=== PATIENT | male | born 1945 | race Caucasian/White ===

== ENCOUNTER 2017-06-03 13:04 | Outpatient (CLI) | payer MEDICARE, OTHER ==
--- NOTE | 2017-06-03 14:01 | ULT ---
ULTRASOUND WITH DOPPLER DUPLEX VENOUS LOWER EXTREMITY RIGHT CPT: 64933 ICD-10-PCS: B54D HISTORY: Edema. TECHNIQUE: Color flow Doppler, spectral waveform analysis of pulsed Doppler, and tinajero-scale imaging with elayne antonia and augmentation, were used to evaluate the right common femoral, femoral, popliteal, posterior tibial, and superficial femoral, veins; and the proximal portions of the profunda femoral and greater saphenous, veins. FINDINGS: There is appropriate compressibility and flow within the deep venous system of the right lower extrem ity. IMPRESSION: No DVT. POS: [facility]
== END 2017-06-03 13:05 | disposition home or self-care (01) ==
LOC: ULT 13:04
PROVIDERS: ATTEND Internal Medicine
DX: R60.0 Localized edema (principal)
CPT/HCPCS: 36415; 80076

== ENCOUNTER 2017-07-20 08:16 | Outpatient (CLI) | payer MEDICARE, OTHER ==
--- NOTE | 2017-07-20 09:42 | ULT ---
RIGHT UPPER QUADRANT ULTRASOUND: History: Elevated liver function test. Hepatic ultrasound with doppler study is requested. FINDINGS: Gallbladder appears unremarkable. No gallstones seen. Common duct is normal caliber measuring 4-5 mm. Liver is upper normal size measuring 18-19 cm. The liver is mildly echogenic suggesting fatty infilt ration. No focal liver lesions seen. Hepatic vessels are evaluated with color doppler and spectral analysis show normal blood flow. Portal veins, hepatic veins, splenic vein, IVC and aorta were imaged. Pancreas is obscured. Right kidney is imaged and appears unremarkable. IMPRESSION: 1. Borderline hepatomegaly. 2. Increased liver echogenicity suggests fatty infiltration. 3. Doppler study shows normal blood flow in the hepatic vessels. POS: [facility]
== END 2017-07-20 08:17 | disposition home or self-care (01) ==
LOC: ULT 08:16
PROVIDERS: ATTEND Internal Medicine Gastroenterology
DX: R79.89 Other specified abnormal findings of blood chemistry (principal); R16.0 Hepatomegaly, not elsewhere classified; R93.2 Abnormal findings on diagnostic imaging of liver and biliary tract
CPT/HCPCS: 76705

== ENCOUNTER 2017-08-30 12:49 | Outpatient (CLI) | payer MEDICARE, OTHER ==
--- NOTE | 2017-08-30 13:35 | RAD ---
TWO VIEWS OF THE CHEST: COMPARISON: 02/04/16; CT chest 07/02/14. HISTORY: Dyspnea. FINDINGS: Two views of the chest show a normal-size cardiomediastinal silhouette. The patient is status post s ternotomy. There are stable areas of nodularity projecting over the right upper lobe measuring up to 1.1 cm in size. There is no evidence of pleural effusion. Degenerative changes are seen in the spi ne. IMPRESSION: 1. No evidence of acute cardiopulmonary disease. 2. Stable right upper lobe areas of nodularity. POS: [facility]
== END 2017-08-30 12:50 | disposition home or self-care (01) ==
LOC: RAD 12:49
PROVIDERS: ATTEND Internal Medicine Pulmonary Disease
DX: R06.00 Dyspnea, unspecified (principal); R91.8 Other nonspecific abnormal finding of lung field
CPT/HCPCS: 71046

== ENCOUNTER 2020-06-24 09:53 | Outpatient (CLI) | payer MEDICARE, OTHER ==
--- NOTE | 2020-06-24 10:50 | RAD ---
EXAM: Two views chest PROVIDED CLINICAL HISTORY: Dyspnea. COMPARISON: 12/27/2019 FINDINGS: Sternotomy wires are again seen. Cardiac silhouette and pulmonary vasculature are within normal limit s. Persistent increased linear densities are seen in the right upper lung zone. Stable pulmonary nodules are again seen in the right upper lobe. These nodules were also present on a study on 08/31/19 18 as well as a study on 02/04/2016. Stable biapical pleural and parenchymal scarring is again noted. Lungs are otherwise clear. No new area of consolidation, pleural fluid, or pulmonary nodule is visualized. No other interval change. IMPRESSION: 1. No acute cardiopulmonary process. 2. Stable nodular densities right upper lobe as well as stable linear parenchymal opacities right upp er lobe/right lung apex. These findings are similar to prior study dating back to 02/04/2016..
== END 2020-06-24 09:54 | disposition home or self-care (01) ==
LOC: BICRAD 09:53
PROVIDERS: ATTEND Internal Medicine Pulmonary Disease
DX: R06.00 Dyspnea, unspecified (principal); R91.8 Other nonspecific abnormal finding of lung field
CPT/HCPCS: 71046